=== PATIENT | female | born 1940 | race Native Hawaiian/Other Pacific Islander ===

== ENCOUNTER 2016-11-10 08:36 | Outpatient (CLI) | payer OTHER, MEDICARE ==
[~2016-11-10 08:36] MED LIST: ASA LO-DOSE81 MG PO; GLIM4TAB PO; METF500T PO; SIMV40TA57
[2016-11-10 09:02] LABS: PLATELET COUNT 163 K/uL (152-353)
[2016-11-10 09:29] LABS: POTASSIUM 4.3 mmol/L (3.6-5.2); SODIUM 134 mmol/L (136-145)
== END 2016-11-10 20:08 | disposition home or self-care (01) ==
LOC: LABW 08:36
PROVIDERS: Internal Medicine
DX: E11.9 Type 2 diabetes mellitus without complications (principal); R82.99 Other abnormal findings in urine
CPT/HCPCS: 36415; 80053; 80061; 81000; 82043; 82570; 83036; 84439; 84443; 85027; 87077; 87086; 87088; 87186

== ENCOUNTER 2017-01-26 11:17 | Emergency (ER) | payer OTHER, MEDICARE ==
[~2017-01-26] VITALS: Ht 152.4 cm; Wt 68.9 kg
[2017-01-26 16:43] LABS: PLATELET COUNT 188 K/uL (152-353)
[2017-01-26 17:01] LABS: POTASSIUM 4.3 mmol/L (3.6-5.2)
[2017-01-26 22:16] VITALS: BP 155/72; TEMP 98.7
== END 2017-01-26 22:17 | disposition short-term general hospital (02) ==
LOC: ED 11:17
PROVIDERS: Emergency Medicine
DX: K56.5 Intestinal adhesions [bands] with obstruction (postinfection) (principal); R11.11 Vomiting without nausea
CPT/HCPCS: 80053; 83605; 83690; 85027; 96361; 96365; 96374; 96375; 99284; J2270; J2405; Q9963

== ENCOUNTER 2017-05-23 08:47 | Outpatient (CLI) | payer OTHER, MEDICARE ==
[2017-05-23 09:15] LABS: PLATELET COUNT 148 K/uL (152-353)
[2017-05-23 09:38] LABS: POTASSIUM 4.2 mmol/L (3.6-5.2)
== END 2017-05-23 09:50 | disposition home or self-care (01) ==
LOC: LABW 08:47
PROVIDERS: Internal Medicine
DX: E11.9 Type 2 diabetes mellitus without complications (principal)
CPT/HCPCS: 36415; 80053; 80061; 81000; 82043; 82570; 83036; 84443; 85027

== ENCOUNTER 2017-08-12 09:01 | Outpatient (CLI) | payer OTHER, MEDICARE | END 2017-08-12 10:05 | disposition home or self-care (01) | LOC: CT 09:01 | DX: F03.90 Unspecified dementia, unspecified severity, without behavioral disturbance, psychotic disturbance, mood disturbance, and anxiety (principal) ==

== ENCOUNTER 2017-11-24 11:18 | Outpatient (CLI) | payer OTHER, MEDICARE ==
[2017-11-24 11:51] LABS: PLATELET COUNT 209 K/uL (152-353)
[2017-11-24 12:09] LABS: POTASSIUM 3.9 mmol/L (3.6-5.2)
== END 2017-11-24 12:20 | disposition home or self-care (01) ==
LOC: LABW 11:18
PROVIDERS: Internal Medicine
DX: E11.9 Type 2 diabetes mellitus without complications (principal)
CPT/HCPCS: 36415; 80053; 80061; 81000; 82043; 82570; 83036; 84443; 85027

== ENCOUNTER 2018-07-26 08:28 | Outpatient (CLI) | payer OTHER, MEDICARE ==
[2018-07-26 08:49] LABS: PLATELET COUNT 171 K/uL (152-353)
[2018-07-26 09:09] LABS: POTASSIUM 4.2 mmol/L (3.6-5.2)
== END 2018-07-26 19:15 | disposition home or self-care (01) ==
LOC: LABW 08:28
PROVIDERS: Internal Medicine
DX: E11.9 Type 2 diabetes mellitus without complications (principal)
CPT/HCPCS: 36415; 80053; 80061; 81000; 83036; 84443; 85027

== ENCOUNTER 2018-08-09 11:01 | Inpatient (IN) | payer OTHER | END 2018-08-10 08:52 | disposition still patient (30) | LOC: PAVB 11:01 | PROVIDERS: ADMIT Internal Medicine ==

== ENCOUNTER 2018-08-10 06:54 | Outpatient (CLI) | payer OTHER ==
[2018-08-10 08:15] LABS: PLATELET COUNT 155 K/uL (152-353)
[2018-08-10 08:26] LABS: POTASSIUM 4.3 mmol/L (3.6-5.2)
== END 2018-08-10 21:49 | disposition home or self-care (01) ==
LOC: LAB 06:54
PROVIDERS: Internal Medicine
DX: E78.5 Hyperlipidemia, unspecified (principal); Z16.24 Resistance to multiple antibiotics; E11.9 Type 2 diabetes mellitus without complications; I10 Essential (primary) hypertension
CPT/HCPCS: 36415; 80053; 80061; 83036; 85027; 87081

== ENCOUNTER 2018-08-10 09:26 | Inpatient (IN) | payer OTHER | END 2018-09-09 08:37 | disposition still patient (30) | LOC: PAVB 09:26 | PROVIDERS: ADMIT Internal Medicine ==

== ENCOUNTER 2018-08-13 12:03 | Outpatient (CLI) | payer OTHER | END 2018-08-13 19:22 | disposition home or self-care (01) | LOC: LAB 12:03 | DX: Z75.1 Person awaiting admission to adequate facility elsewhere (principal) | CPT/HCPCS: 82306 ==

== ENCOUNTER 2018-09-09 08:55 | Inpatient (IN) | payer OTHER | END 2018-10-10 11:09 | disposition still patient (30) | LOC: PAVB 08:55 | PROVIDERS: ADMIT Internal Medicine ==

== ENCOUNTER 2018-10-10 11:52 | Inpatient (IN) | payer OTHER | END 2018-11-10 13:46 | disposition still patient (30) | LOC: PAVB 11:52 | PROVIDERS: ADMIT Internal Medicine ==

== ENCOUNTER 2018-11-10 14:05 | Inpatient (IN) | payer OTHER | END 2018-12-08 11:43 | disposition still patient (30) | LOC: PAVB 14:05 | PROVIDERS: ADMIT Internal Medicine ==

== ENCOUNTER 2018-11-14 11:08 | Outpatient (CLI) | payer OTHER | END 2018-11-14 20:27 | disposition home or self-care (01) | LOC: LAB 11:08 | DX: E11.9 Type 2 diabetes mellitus without complications (principal) | CPT/HCPCS: 83036 ==

== ENCOUNTER 2018-12-08 12:09 | Inpatient (IN) | payer OTHER | END 2019-01-08 11:38 | disposition still patient (30) | LOC: PAVB 12:09 | PROVIDERS: ADMIT Internal Medicine ==

== ENCOUNTER 2019-01-08 11:57 | Inpatient (IN) | payer OTHER | END 2019-02-07 12:46 | disposition still patient (30) | LOC: PAVB 11:57 | PROVIDERS: ADMIT Internal Medicine ==

== ENCOUNTER 2019-02-02 21:33 | Outpatient (CLI) | payer OTHER | END 2019-02-02 22:43 | disposition home or self-care (01) | LOC: LAB 21:33 | DX: R30.0 Dysuria (principal) | CPT/HCPCS: 81000 ==

== ENCOUNTER 2019-02-07 13:39 | Inpatient (IN) | payer OTHER | END 2019-03-10 08:42 | disposition still patient (30) | LOC: PAVB 13:39 | PROVIDERS: ADMIT Internal Medicine ==

== ENCOUNTER 2019-02-08 06:58 | Outpatient (CLI) | payer OTHER ==
[2019-02-08 07:34] LABS: PLATELET COUNT 128 K/uL (152-353)
[2019-02-08 08:01] LABS: POTASSIUM 4.2 mmol/L (3.6-5.2)
== END 2019-02-08 19:46 | disposition home or self-care (01) ==
LOC: LAB 06:58
PROVIDERS: Internal Medicine
DX: E11.9 Type 2 diabetes mellitus without complications (principal); I10 Essential (primary) hypertension
CPT/HCPCS: 80053; 82607; 83036; 85027

== ENCOUNTER 2019-03-10 09:02 | Inpatient (IN) | payer OTHER | END 2019-04-09 09:43 | disposition still patient (30) | LOC: PAVB 09:02 | PROVIDERS: ADMIT Internal Medicine ==

== ENCOUNTER 2019-04-09 10:19 | Inpatient (IN) | payer OTHER | END 2019-05-10 10:39 | disposition still patient (30) | LOC: PAVB 10:19 | PROVIDERS: ADMIT Internal Medicine ==

== ENCOUNTER 2019-05-10 11:45 | Inpatient (IN) | payer OTHER | END 2019-06-10 16:30 | disposition still patient (30) | LOC: PAVB 11:45 | PROVIDERS: ADMIT Internal Medicine ==

== ENCOUNTER 2019-05-14 03:54 | Outpatient (CLI) | payer OTHER | END 2019-05-14 23:17 | disposition home or self-care (01) | LOC: LAB 03:54 | DX: E11.21 Type 2 diabetes mellitus with diabetic nephropathy (principal) | CPT/HCPCS: 83036 ==

== ENCOUNTER 2019-06-10 16:49 | Inpatient (IN) | payer OTHER | END 2019-07-10 09:36 | disposition still patient (30) | LOC: PAVB 16:49 | PROVIDERS: ADMIT Internal Medicine ==

== ENCOUNTER 2019-07-10 12:02 | Inpatient (IN) | payer OTHER | END 2019-08-10 11:14 | disposition still patient (30) | LOC: PAVB 12:02 | PROVIDERS: ADMIT Internal Medicine ==

== ENCOUNTER 2019-08-10 12:10 | Inpatient (IN) | payer OTHER | END 2019-09-09 08:00 | disposition still patient (30) | LOC: PAVB 12:10 | PROVIDERS: ADMIT Internal Medicine ==

== ENCOUNTER 2019-08-13 08:43 | Outpatient (CLI) | payer OTHER ==
[2019-08-13 09:15] LABS: PLATELET COUNT 119 K/uL (152-353)
[2019-08-13 09:36] LABS: POTASSIUM 4.6 mmol/L (3.6-5.2)
== END 2019-08-13 19:21 | disposition home or self-care (01) ==
LOC: LAB 08:43
PROVIDERS: Internal Medicine
DX: E11.9 Type 2 diabetes mellitus without complications (principal); E78.49 Other hyperlipidemia; E53.8 Deficiency of other specified B group vitamins; I10 Essential (primary) hypertension
CPT/HCPCS: 80053; 80061; 82607; 83036; 85027

== ENCOUNTER 2019-09-09 10:10 | Inpatient (IN) | payer OTHER | END 2019-10-10 09:05 | disposition still patient (30) | LOC: PAVB 10:10 | PROVIDERS: ADMIT Internal Medicine ==

== ENCOUNTER 2019-10-10 09:21 | Inpatient (IN) | payer OTHER | END 2019-11-10 10:00 | disposition still patient (30) | LOC: PAVB 09:21 | PROVIDERS: ADMIT Internal Medicine ==

== ENCOUNTER 2019-11-10 10:19 | Inpatient (IN) | payer OTHER | END 2019-12-09 13:19 | disposition still patient (30) | LOC: PAVB 10:19 | PROVIDERS: ADMIT Internal Medicine ==

== ENCOUNTER 2019-11-15 06:28 | Outpatient (CLI) | payer OTHER | END 2019-11-15 19:35 | disposition home or self-care (01) | LOC: LAB 06:28 | DX: E11.9 Type 2 diabetes mellitus without complications (principal) | CPT/HCPCS: 83036 ==

== ENCOUNTER 2019-11-30 15:00 | Outpatient (CLI) | payer OTHER | END 2019-11-30 19:47 | disposition home or self-care (01) | LOC: RAD 15:00 | DX: R51 Headache (principal) ==

== ENCOUNTER 2019-12-09 13:42 | Inpatient (IN) | payer OTHER | END 2020-01-09 09:50 | disposition still patient (30) | LOC: PAVB 13:42 | PROVIDERS: ADMIT Internal Medicine ==

== ENCOUNTER 2019-12-13 12:47 | Outpatient (CLI) | payer OTHER | END 2019-12-13 21:31 | disposition home or self-care (01) | LOC: RAD 12:47 | DX: M25.561 Pain in right knee (principal) ==

== ENCOUNTER 2020-01-09 11:32 | Inpatient (IN) | payer OTHER | END 2020-02-08 09:08 | disposition still patient (30) | LOC: PAVB 11:32 | PROVIDERS: ADMIT Internal Medicine ==

== ENCOUNTER 2020-02-08 11:11 | Inpatient (IN) | payer OTHER | END 2020-03-10 09:16 | disposition still patient (30) | LOC: PAVB 11:11 | PROVIDERS: ADMIT Internal Medicine | CPT/HCPCS: 87635; U0002 ==

== ENCOUNTER 2020-02-11 07:48 | Outpatient (CLI) | payer OTHER ==
[2020-02-11 08:39] LABS: POTASSIUM 3.9 mmol/L (3.6-5.2)
[2020-02-11 09:51] LABS: PLATELET COUNT 113 K/uL (152-353)
== END 2020-02-11 19:24 | disposition home or self-care (01) ==
LOC: LAB 07:48
PROVIDERS: Internal Medicine
DX: E11.9 Type 2 diabetes mellitus without complications (principal); I10 Essential (primary) hypertension; K21.9 Gastro-esophageal reflux disease without esophagitis
CPT/HCPCS: 80053; 82607; 83036; 85027

== ENCOUNTER 2020-03-10 11:18 | Inpatient (IN) | payer OTHER | END 2020-04-09 10:24 | disposition still patient (30) | LOC: PAVB 11:18 | PROVIDERS: ADMIT Internal Medicine | CPT/HCPCS: 87635; G2062; U0002 ==

== ENCOUNTER 2020-04-09 11:53 | Inpatient (IN) | payer OTHER | END 2020-05-10 09:22 | disposition still patient (30) | LOC: PAVB 11:53 | PROVIDERS: ADMIT Internal Medicine | CPT/HCPCS: 87635; U0002 ==

== ENCOUNTER 2020-05-02 11:22 | Outpatient (CLI) | payer OTHER | END 2020-05-02 19:46 | disposition home or self-care (01) | LOC: RAD 11:22 | PROVIDERS: ATTEND Internal Medicine | DX: M25.561 Pain in right knee (principal) ==

== ENCOUNTER 2020-05-10 10:09 | Inpatient (IN) | payer OTHER | END 2020-06-10 11:58 | disposition still patient (30) | LOC: PAVB 10:09 | PROVIDERS: ADMIT Internal Medicine | CPT/HCPCS: 87635; U0002; U0003 ==

== ENCOUNTER 2020-05-13 10:59 | Outpatient (CLI) | payer OTHER | END 2020-05-13 23:23 | disposition home or self-care (01) | LOC: LAB 10:59 | DX: E11.9 Type 2 diabetes mellitus without complications (principal) | CPT/HCPCS: 83036 ==

== ENCOUNTER 2020-06-10 12:23 | Inpatient (IN) | payer OTHER | END 2020-07-10 11:03 | disposition still patient (30) | LOC: PAVB 12:23 | PROVIDERS: ADMIT Internal Medicine ==

== ENCOUNTER 2020-07-10 11:12 | Inpatient (IN) | payer OTHER | END 2020-08-10 08:00 | disposition still patient (30) | LOC: PAVB 11:12 | PROVIDERS: ADMIT Internal Medicine ==

== ENCOUNTER 2020-08-10 09:00 | Inpatient (IN) | payer OTHER | END 2020-09-09 09:52 | disposition still patient (30) | LOC: PAVB 09:00 | PROVIDERS: ADMIT Internal Medicine; ATTEND Internal Medicine ==

== ENCOUNTER 2020-08-13 09:58 | Outpatient (CLI) | payer OTHER ==
[2020-08-13 10:55] LABS: PLATELET COUNT 100 K/uL (152-353)
[2020-08-13 11:16] LABS: POTASSIUM 3.9 mmol/L (3.6-5.2)
== END 2020-08-13 21:48 | disposition home or self-care (01) ==
LOC: LAB 09:58
PROVIDERS: Internal Medicine
DX: E11.9 Type 2 diabetes mellitus without complications (principal); K21.9 Gastro-esophageal reflux disease without esophagitis; D51.8 Other vitamin B12 deficiency anemias; I10 Essential (primary) hypertension
CPT/HCPCS: 80053; 82607; 83036; 85027

== ENCOUNTER 2020-09-09 10:45 | Inpatient (IN) | payer OTHER | END 2020-10-10 09:02 | disposition still patient (30) | LOC: PAVB 10:45 | PROVIDERS: ADMIT Internal Medicine; ATTEND Internal Medicine ==

== ENCOUNTER 2020-10-10 09:07 | Inpatient (IN) | payer OTHER | END 2020-11-10 14:54 | disposition still patient (30) | LOC: PAVB 09:07 | PROVIDERS: ADMIT Internal Medicine; ATTEND Internal Medicine ==

== ENCOUNTER 2020-11-10 14:59 | Inpatient (IN) | payer OTHER | END 2020-12-08 09:53 | disposition still patient (30) | LOC: PAVB 14:59 | PROVIDERS: ADMIT Internal Medicine; ATTEND Internal Medicine ==

== ENCOUNTER 2020-11-13 09:48 | Outpatient (CLI) | payer OTHER | END 2020-11-13 20:07 | disposition home or self-care (01) | LOC: LAB 09:48 | PROVIDERS: ATTEND Internal Medicine | DX: E11.9 Type 2 diabetes mellitus without complications (principal) | CPT/HCPCS: 83036 ==

== ENCOUNTER 2020-12-01 12:56 | Outpatient (CLI) | payer OTHER, MEDICARE | END 2020-12-01 19:26 | disposition home or self-care (01) | LOC: RAD 12:56 | PROVIDERS: ATTEND Internal Medicine | DX: M17.11 Unilateral primary osteoarthritis, right knee (principal) ==

== ENCOUNTER 2020-12-08 10:00 | Inpatient (IN) | payer OTHER | END 2021-01-08 09:58 | disposition still patient (30) | LOC: PAVB 10:00 | PROVIDERS: ADMIT Internal Medicine; ATTEND Internal Medicine ==

== ENCOUNTER 2021-01-08 10:23 | Inpatient (IN) | payer OTHER | END 2021-02-07 10:49 | disposition still patient (30) | LOC: PAVB 10:23 | PROVIDERS: ADMIT Internal Medicine; ATTEND Internal Medicine ==

== ENCOUNTER 2021-02-07 10:58 | Inpatient (IN) | payer OTHER | END 2021-03-10 14:38 | disposition still patient (30) | LOC: PAVB 10:58 | PROVIDERS: ADMIT Internal Medicine; ATTEND Internal Medicine ==

== ENCOUNTER 2021-02-10 09:53 | Outpatient (CLI) | payer OTHER ==
[2021-02-10 10:25] LABS: PLATELET COUNT 119 K/uL (152-353)
[2021-02-10 10:42] LABS: POTASSIUM 4.7 mmol/L (3.6-5.2)
== END 2021-02-10 19:47 | disposition home or self-care (01) ==
LOC: LAB 09:53
PROVIDERS: ATTEND Internal Medicine
DX: E11.9 Type 2 diabetes mellitus without complications (principal); K21.9 Gastro-esophageal reflux disease without esophagitis; I10 Essential (primary) hypertension
CPT/HCPCS: 80053; 82607; 83036; 85027

== ENCOUNTER 2021-03-10 14:42 | Inpatient (IN) | payer OTHER | END 2021-04-09 08:00 | disposition still patient (30) | LOC: PAVB 14:42 | PROVIDERS: ADMIT Internal Medicine; ATTEND Internal Medicine ==

== ENCOUNTER 2021-04-09 09:00 | Inpatient (IN) | payer OTHER | END 2021-05-10 08:00 | disposition still patient (30) | LOC: PAVB 09:00 | PROVIDERS: ADMIT Internal Medicine; ATTEND Internal Medicine ==

== ENCOUNTER 2021-05-10 09:00 | Inpatient (IN) | payer OTHER | END 2021-06-10 10:06 | disposition still patient (30) | LOC: PAVB 09:00 | PROVIDERS: ADMIT Internal Medicine; ATTEND Internal Medicine ==

== ENCOUNTER 2021-05-12 07:13 | Outpatient (CLI) | payer OTHER | END 2021-05-12 19:16 | disposition home or self-care (01) | LOC: LAB 07:13 | PROVIDERS: ATTEND Internal Medicine | DX: E11.9 Type 2 diabetes mellitus without complications (principal) | CPT/HCPCS: 83036 ==

== ENCOUNTER 2021-06-10 10:42 | Inpatient (IN) | payer OTHER | END 2021-07-10 08:41 | disposition still patient (30) | LOC: PAVB 10:42 | PROVIDERS: ADMIT Internal Medicine; ATTEND Internal Medicine ==

== ENCOUNTER 2021-07-24 13:48 | Outpatient (CLI) | payer OTHER | END 2021-07-24 19:57 | disposition home or self-care (01) | LOC: US 13:48 | PROVIDERS: ATTEND Internal Medicine | DX: R09.02 Hypoxemia (principal); R05.8 Other specified cough; R60.9 Edema, unspecified; M79.604 Pain in right leg ==

== ENCOUNTER 2021-08-11 07:33 | Outpatient (CLI) | payer OTHER ==
[2021-08-11 07:59] LABS: PLATELET COUNT 187 K/uL (152-353)
[2021-08-11 08:10] LABS: POTASSIUM 4.2 mmol/L (3.6-5.2)
== END 2021-08-11 21:16 | disposition home or self-care (01) ==
LOC: LAB 07:33
PROVIDERS: ATTEND Internal Medicine
DX: E11.9 Type 2 diabetes mellitus without complications (principal)
CPT/HCPCS: 36415; 80053; 80061; 82607; 83036; 85027

== ENCOUNTER 2021-08-12 11:28 | Outpatient (CLI) | payer OTHER | END 2021-08-12 22:37 | disposition home or self-care (01) | LOC: LAB 11:28 | PROVIDERS: ATTEND Internal Medicine | DX: R10.84 Generalized abdominal pain (principal); K29.60 Other gastritis without bleeding | CPT/HCPCS: 81000; 82150; 83690 ==

== ENCOUNTER 2021-09-09 09:37 | Inpatient (IN) | payer OTHER | END 2021-10-10 08:21 | disposition still patient (30) | LOC: PAVB 09:37 | PROVIDERS: ADMIT Internal Medicine; ATTEND Internal Medicine ==

== ENCOUNTER 2021-09-25 10:16 | Outpatient (CLI) | payer OTHER | END 2021-09-25 19:27 | disposition home or self-care (01) | LOC: RAD 10:16 | PROVIDERS: ATTEND Internal Medicine | DX: M25.512 Pain in left shoulder (principal) ==

== ENCOUNTER 2021-10-10 08:37 | Inpatient (IN) | payer OTHER | END 2021-11-10 09:24 | disposition still patient (30) | LOC: PAVB 08:37 | PROVIDERS: ADMIT Internal Medicine; ATTEND Internal Medicine ==

== ENCOUNTER 2021-11-10 07:17 | Outpatient (CLI) | payer OTHER | END 2021-11-10 19:21 | disposition home or self-care (01) | LOC: LAB 07:17 | PROVIDERS: ATTEND Internal Medicine | DX: E11.9 Type 2 diabetes mellitus without complications (principal) | CPT/HCPCS: 83036 ==

== ENCOUNTER 2021-11-10 11:25 | Inpatient (IN) | payer OTHER | END 2021-12-08 08:56 | disposition still patient (30) | LOC: PAVB 11:25 | PROVIDERS: ADMIT Internal Medicine; ATTEND Internal Medicine ==

== ENCOUNTER 2021-12-08 12:08 | Inpatient (IN) | payer OTHER | END 2022-01-08 08:40 | disposition still patient (30) | LOC: PAVB 12:08 | PROVIDERS: ADMIT Internal Medicine; ATTEND Internal Medicine ==

== ENCOUNTER 2022-01-08 08:45 | Inpatient (IN) | payer OTHER | END 2022-02-07 09:47 | disposition still patient (30) | LOC: PAVB 08:45 | PROVIDERS: ADMIT Internal Medicine; ATTEND Internal Medicine ==

== ENCOUNTER 2022-02-07 11:32 | Inpatient (IN) | payer OTHER | END 2022-03-10 09:34 | disposition still patient (30) | LOC: PAVB 11:32 | PROVIDERS: ADMIT Internal Medicine; ATTEND Internal Medicine ==

== ENCOUNTER 2022-02-09 07:13 | Outpatient (CLI) | payer OTHER ==
[2022-02-09 07:51] LABS: PLATELET COUNT 234 K/uL (152-353)
[2022-02-09 08:15] LABS: POTASSIUM 4.8 mmol/L (3.6-5.2)
== END 2022-02-09 18:56 | disposition home or self-care (01) ==
LOC: LAB 07:13
PROVIDERS: ATTEND Internal Medicine
DX: E11.9 Type 2 diabetes mellitus without complications (principal); I10 Essential (primary) hypertension
CPT/HCPCS: 80053; 82607; 83036; 85027

== ENCOUNTER 2022-03-10 12:54 | Inpatient (IN) | payer OTHER | END 2022-04-09 09:02 | disposition still patient (30) | LOC: PAVB 12:54 | PROVIDERS: ADMIT Internal Medicine; ATTEND Internal Medicine ==

== ENCOUNTER 2022-04-06 13:03 | Outpatient (CLI) | payer OTHER | END 2022-04-06 20:39 | disposition home or self-care (01) | LOC: RAD 13:03 | PROVIDERS: ATTEND Internal Medicine | DX: M25.511 Pain in right shoulder (principal); M54.2 Cervicalgia ==

== ENCOUNTER 2022-04-07 09:29 | Emergency (ER) | payer OTHER ==
[~2022-04-07] VITALS: Ht 162.6 cm; Wt 72.6 kg
[2022-04-07 09:30] VITALS: TEMP 98
[2022-04-07 10:02] LABS: PLATELET COUNT 158 K/uL (152-353)
[2022-04-07 10:31] LABS: PARTIAL THROMBOPLASTIN TIME 21.7 SECONDS (24.5-33.6)
[2022-04-07 13:38] VITALS: BP 140/74
== END 2022-04-07 15:04 ==
LOC: ED 09:29
PROVIDERS: Hospitalist
PROC: 0RSJXZZ Reposition Right Shoulder Joint, External Approach (ICD-10-PCS; principal; 2022-04-07)
PROC: 2W38X1Z Immobilization of Right Upper Extremity using Splint (ICD-10-PCS; 2022-04-07)
DX: S43.084A Other dislocation of right shoulder joint, initial encounter (principal); W18.39XA Other fall on same level, initial encounter; Y92.128 Other place in nursing home as the place of occurrence of the external cause; Z79.82 Long term (current) use of aspirin; Z51.81 Encounter for therapeutic drug level monitoring
CPT/HCPCS: 80048; 85027; 85610; 85730; 96360; 96374; 96375; 96376; 99284; J1170; J1885; J2405; J3490

== ENCOUNTER 2022-04-09 10:39 | Inpatient (IN) | payer OTHER | END 2022-05-10 09:13 | disposition still patient (30) | LOC: PAVB 10:39 | PROVIDERS: ADMIT Internal Medicine; ATTEND Internal Medicine ==

== ENCOUNTER 2022-05-10 10:35 | Outpatient (CLI) | payer OTHER | END 2022-05-10 18:57 | disposition home or self-care (01) | LOC: LAB 10:35 | PROVIDERS: ATTEND Internal Medicine | DX: E11.9 Type 2 diabetes mellitus without complications (principal) | CPT/HCPCS: 83036 ==

== ENCOUNTER 2022-05-10 11:15 | Inpatient (IN) | payer OTHER | END 2022-06-10 08:59 | disposition still patient (30) | LOC: PAVB 11:15 | PROVIDERS: ADMIT Internal Medicine; ATTEND Internal Medicine ==

== ENCOUNTER 2022-06-10 10:37 | Inpatient (IN) | payer OTHER | END 2022-07-10 10:20 | disposition still patient (30) | LOC: PAVB 10:37 | PROVIDERS: ADMIT Internal Medicine; ATTEND Internal Medicine ==

== ENCOUNTER 2022-06-10 14:48 | Outpatient (CLI) | payer OTHER | END 2022-06-10 19:35 | disposition home or self-care (01) | LOC: RAD 14:48 | PROVIDERS: ATTEND Internal Medicine | DX: M25.512 Pain in left shoulder (principal); M25.511 Pain in right shoulder ==

== ENCOUNTER 2022-07-10 12:11 | Inpatient (IN) | payer OTHER | END 2022-08-10 14:30 | disposition still patient (30) | LOC: PAVB 12:11 | PROVIDERS: ADMIT Internal Medicine; ATTEND Internal Medicine ==

== ENCOUNTER 2022-07-22 21:25 | Emergency (ER) | payer OTHER ==
[~2022-07-22] VITALS: Ht 162.6 cm; Wt 72.6 kg
[2022-07-22 21:35] VITALS: BP 204/91; TEMP 97.9
== END 2022-07-22 21:35 ==
LOC: ED 21:25
DX: F03.92 Unspecified dementia, unspecified severity, with psychotic disturbance (principal); I10 Essential (primary) hypertension; M54.89 Other dorsalgia; G89.29 Other chronic pain; W18.39XA Other fall on same level, initial encounter; Y92.128 Other place in nursing home as the place of occurrence of the external cause
CPT/HCPCS: 99282

== ENCOUNTER 2022-07-30 14:53 | Outpatient (CLI) | payer OTHER | END 2022-07-30 19:07 | disposition home or self-care (01) | LOC: RAD 14:53 | PROVIDERS: ATTEND Internal Medicine | DX: M25.522 Pain in left elbow (principal); M25.561 Pain in right knee; M25.512 Pain in left shoulder; M25.511 Pain in right shoulder; W19.XXXA Unspecified fall, initial encounter; Y92.89 Other specified places as the place of occurrence of the external cause ==

== ENCOUNTER 2022-08-06 13:50 | Outpatient (CLI) | payer OTHER | END 2022-08-06 19:32 | disposition home or self-care (01) | LOC: RAD 13:50 | PROVIDERS: ATTEND Internal Medicine | DX: M25.561 Pain in right knee (principal); M25.551 Pain in right hip ==

== ENCOUNTER 2022-08-10 15:04 | Inpatient (IN) | payer OTHER | END 2022-09-09 14:55 | disposition still patient (30) | LOC: PAVB 15:04 | PROVIDERS: ADMIT Internal Medicine; ATTEND Internal Medicine ==

== ENCOUNTER → 2022-08-10 | Outpatient (CLI) | payer OTHER ==
[2022-08-10 11:52] LABS: PLATELET COUNT 140 K/uL (152-353)
[2022-08-10 12:44] LABS: POTASSIUM 4.3 mmol/L (3.6-5.2)
== END ==
LOC: LAB 11:04
PROVIDERS: ATTEND Internal Medicine
DX: I10 Essential (primary) hypertension (principal); K21.9 Gastro-esophageal reflux disease without esophagitis; E11.9 Type 2 diabetes mellitus without complications; D51.8 Other vitamin B12 deficiency anemias
CPT/HCPCS: 80053; 80061; 82607; 83036; 85027

== ENCOUNTER 2022-09-09 16:30 | Inpatient (IN) | payer OTHER | END 2022-10-10 10:32 | disposition still patient (30) | LOC: PAVB 16:30 | PROVIDERS: ADMIT Internal Medicine; ATTEND Internal Medicine ==

== ENCOUNTER 2022-10-09 10:55 | Emergency (ER) | payer OTHER ==
[~2022-10-09] VITALS: Ht 162.6 cm; Wt 72.6 kg
[2022-10-09 13:30] VITALS: BP 108/67; TEMP 97.4
== END 2022-10-09 13:22 | disposition home or self-care (01) ==
LOC: ED 10:55
DX: S00.83XA Contusion of other part of head, initial encounter (principal); W05.0XXA Fall from non-moving wheelchair, initial encounter; Y92.128 Other place in nursing home as the place of occurrence of the external cause
CPT/HCPCS: 99283

== ENCOUNTER 2022-10-10 11:46 | Inpatient (IN) | payer OTHER | END 2022-11-10 08:41 | disposition still patient (30) | LOC: PAVB 11:46 | PROVIDERS: ADMIT Internal Medicine; ATTEND Internal Medicine ==

== ENCOUNTER 2022-11-10 10:19 | Inpatient (IN) | payer OTHER | END 2022-12-08 11:51 | disposition still patient (30) | LOC: PAVB 10:19 | PROVIDERS: ADMIT Internal Medicine; ATTEND Internal Medicine ==

== ENCOUNTER 2022-11-16 11:34 | Outpatient (CLI) | payer OTHER | END 2022-11-16 23:19 | disposition home or self-care (01) | LOC: LAB 11:34 | PROVIDERS: ATTEND Internal Medicine | DX: E11.9 Type 2 diabetes mellitus without complications (principal) | CPT/HCPCS: 83036 ==

== ENCOUNTER 2022-12-08 12:10 | Inpatient (IN) | payer OTHER | END 2023-01-08 11:22 | disposition still patient (30) | LOC: PAVB 12:10 | PROVIDERS: ADMIT Internal Medicine; ATTEND Internal Medicine ==

== ENCOUNTER 2023-01-08 11:31 | Inpatient (IN) | payer OTHER | END 2023-02-07 10:37 | disposition still patient (30) | LOC: PAVB 11:31 | PROVIDERS: ADMIT Internal Medicine; ATTEND Internal Medicine ==

== ENCOUNTER 2023-02-07 10:28 | Outpatient (CLI) | payer OTHER ==
[2023-02-07 10:43] LABS: PLATELET COUNT 164 K/uL (152-353)
[2023-02-07 10:55] LABS: POTASSIUM 4.5 mmol/L (3.6-5.2)
== END 2023-02-07 19:49 | disposition home or self-care (01) ==
LOC: LAB 10:28
PROVIDERS: ATTEND Internal Medicine
DX: E11.9 Type 2 diabetes mellitus without complications (principal); I10 Essential (primary) hypertension
CPT/HCPCS: 80053; 82607; 83036; 85027

== ENCOUNTER 2023-02-07 10:55 | Inpatient (IN) | payer OTHER | END 2023-03-10 10:33 | disposition still patient (30) | LOC: PAVB 10:55 | PROVIDERS: ADMIT Internal Medicine; ATTEND Internal Medicine ==

== ENCOUNTER 2023-03-10 10:43 | Inpatient (IN) | payer OTHER | END 2023-04-09 17:31 | disposition still patient (30) | LOC: PAVB 10:43 | PROVIDERS: ADMIT Internal Medicine; ATTEND Internal Medicine ==

== ENCOUNTER 2023-05-11 10:48 | Outpatient (CLI) | payer OTHER | END 2023-05-11 19:07 | disposition home or self-care (01) | LOC: LAB 10:48 | PROVIDERS: ATTEND Internal Medicine | DX: E11.9 Type 2 diabetes mellitus without complications (principal) | CPT/HCPCS: 83036 ==